=== PATIENT | female | born 1995 | race Two or more races ===

== ENCOUNTER 2023-02-24 00:55 | Emergency (ER) | payer MEDICAID, OTHER ==
[~2023-02-24] VITALS: Ht 165.1 cm; Wt 103.0 kg
[2023-02-24 01:17] VITALS: BP 121/71; PULSE 91; RESP 16; O2SAT 97
[2023-02-24 02:05] LABS: Urine Bacteria NONE SEEN /hpf (None Seen); Urine Blood Negative /uL (Negative); Urine Clarity Clear (Clear); Urine Color Yellow (Yellow); Urine Mucus FEW (None Seen); Urine Protein, UAD Negative (Negative); Urine Specific Gravity 1.027 (1.001-1.035); Urine Urobilinogen Normal (Negative); Urine WBC 3 /hpf (0 - 5); Urine pH 5.5 (5.0-8.0)
[2023-02-24 02:08] LABS: Basophils # (auto) 0.1 10 ^3/uL (0-0.2); Basophils % (auto) 0.8 % (0.0-2.0); Eosinophils % (auto) 7.5 % (0.0-7.0); Hematocrit 37.4 % (36.0-46.0); Hemoglobin 12.2 g/dL (12.2-16.2); Lymphocytes # (auto) 3.4 10 ^3/uL (0.4-5.4); Lymphocytes % (auto) 25.8 % (10.0-50.0); Mean Corpuscular Hemoglobin 27.1 pg (28.0-32.0); Mean Corpuscular Hgb Conc. 32.6 g/dL (32.0-36.0); Mean Corpuscular Volume 83.2 fL (80.0-100.0); Monocytes # (auto) 0.7 10 ^3/uL (0-1.3); Monocytes % (auto) 5.7 % (0.0-12.0); Neutrophils # (auto) 7.9 10 ^3/uL (1.6-8.6); Neutrophils % (auto) 60.2 % (37.0-80.0); Red Blood Cells 4.49 10^6/uL (4.0-5.20); White Blood Cell 13.1 10^3/uL (4.4-10.8)
[2023-02-24 02:26] LABS: Alanine Aminotransferase 16 U/L (7-40); Albumin 4.5 g/dL (3.2-4.8); Alkaline Phosphatase 56 U/L (46-116); Anion Gap 8.6 (5-15); Aspartate Aminotransferase 25 U/L (13-40); BUN/Creatinine Ratio 10.7 (10.0-20.0); Bilirubin, Total 0.3 mg/dL (0.2-1.0); Blood Urea Nitrogen 6 mg/dL (9-23); Calcium 9.7 mg/dL (8.7-10.4); Carbon Dioxide 21.4 mmol/L (20-30); Chloride 107 mmol/L (98-107); Glucose 104 mg/dL (74-106); Potassium 3.3 mmol/L (3.5-5.1); Sodium 137 mmol/L (136-145); Total Protein 7.2 g/dL (5.7-8.2)
[2023-02-24] MEDS ORDERED: POTASSIUM EFFERVESENT TAB 25 MEQ PO ONE (05:30)
== END 2023-02-24 06:00 | disposition home or self-care (01) ==
LOC: ER 00:55
DX: O26.891 Other specified pregnancy related conditions, first trimester (principal); R10.2 Pelvic and perineal pain; D72.829 Elevated white blood cell count, unspecified; E87.6 Hypokalemia; Z3A.10 10 weeks gestation of pregnancy
CPT/HCPCS: 36415; 76801; 80053; 81001; 84702; 85025

== ENCOUNTER 2023-05-16 12:38 | Observation (INO) | payer MEDICAID ==
[2023-05-16] MEDS ORDERED: PREN1TAB71 OR (13:33)
[2023-05-16] MEDS ORDERED: ALBU108A5 IN (13:33)
== END 2023-05-16 13:50 | disposition home or self-care (01) ==
LOC: LDRP 12:38
PROVIDERS: ADMIT Obstetrics & Gynecology; ATTEND Obstetrics & Gynecology
DX: Z34.83 Encounter for supervision of other normal pregnancy, third trimester (principal); Z3A.22 22 weeks gestation of pregnancy
CPT/HCPCS: 59025; 81002; 94760; G0378

== ENCOUNTER → 2023-11-27 | Outpatient (CLI) | payer MEDICAID ==
[~2023-11-27] MED LIST: ALBU108A5 IN; ALBUTEROL SULF 2.5 MG/0.5ML(0.5%) NEB SOLN ONE; FLUT0.05 NAS; PREN1TAB71 OR
== END | disposition home or self-care (01) ==
LOC: RT 08:52
PROVIDERS: ATTEND Internal Medicine Pulmonary Disease
DX: J45.909 Unspecified asthma, uncomplicated (principal)
CPT/HCPCS: 94060; 94727; 94729

== ENCOUNTER 2024-08-09 12:45 | Observation (INO) | payer MEDICAID ==
[~2024-08-09 12:45] MED LIST changes: -ALBUTEROL SULF 2.5 MG/0.5ML(0.5%) NEB SOLN ONE
--- NOTE | 2024-08-09 14:28 | DVH ---
BIOPHYSICAL PROFILE HISTORY: gdma1 TECHNIQUE: Multiple transabdominal real-time grayscale sonographic images through the gravid uterus of the fetus with duplex Doppler color flow and M-mode spectral analysis FINDINGS: BIOPHYSICAL PROFILE: breathing score: 2 movement score: 2 tone score: 2 Quantitative NOAH score: 2 (NOAH: 19.1 Cm.) Total score: 8/8 The cervix not measured but appears closed Single live fetus in breech presentation. heart rate 138 beats per minute. Anterior Grade 2 placenta without previa or abruption Single live fetus at 32 weeks 2 days Biophysical profile score 8/8 corresponding to an ANGELICA of 10/02/2024. Estimated weight not estimated g IMPRESSION: 1. Biophysical profile score: 8/8 HS:Y
[2024-08-09] MEDS ORDERED: ASPI-543 PO ×2 (14:46)
--- NOTE | 2024-08-09 19:34 | DVHDS2 ---
Physician Discharge Progress N Final Diagnosis: testing for GDM, A1 Operations or Procedures: Operations or Procedures 29yo IUP@32.2wks, +FM, denies UCs/LOF/VB VSS NST reactive (verified by 2 RNs) BPP wnl except breech FKC/PTL precautions reviewed Recommended spinning babies exercises to flip a breech baby. Dr. Reyes consulted, agrees with POC. Condition on Discharge: Stable Disposition: Home Discharge Instructions: Diet: Consistent carbohydrate Activity: No Restrictions, As Tolerated Medications: see med list Follow Up Care: Specialist: f/u in 1wk Discharge Statement: "Patient was advised to return to the ER or call 911 if any headaches, dizziness, shortness of breath, chest pain, abdominal pain, bleeding, fevers, or worsening of medical condition. Patient was counseled about treatment plan, medications, possible side effects, patientverbalized understanding. All questions were answered to the best of my ability. This discharge took greater then 30 minutes in planning, reviewing docu mentation, counseling the patient, and discussing with other team members." Visit Coding OBGYN Date of Service: Aug 09, 2024 Billing Provider: BRIANNA MAZARIEGOS CNM NUT SORTER Common Visit Codes: [id number] OBS CARE (HIGH) BRIANNA MAZARIEGOS CNM Aug 09, 2024 19:34
== END 2024-08-09 14:54 | disposition home or self-care (01) ==
LOC: LDRP 12:45
PROVIDERS: ADMIT Obstetrics & Gynecology; ATTEND Obstetrics & Gynecology
DX: O24.419 Gestational diabetes mellitus in pregnancy, unspecified control (principal); Z3A.32 32 weeks gestation of pregnancy; Z79.899 Other long term (current) drug therapy; Z98.890 Other specified postprocedural states
CPT/HCPCS: 76818; 81002; 82948; 82962; 94760; G0378; 59025; 76819

== ENCOUNTER 2024-08-16 07:36 | Observation (INO) | payer MEDICAID ==
[~2024-08-16 07:36] MED LIST changes: +ASPI-543 PO
--- NOTE | 2024-08-16 11:03 | DVH ---
Procedure: US BIOPHYSICAL PROFILE 08/16/2024 10:25 AM Indication: GDMA1 Comparison: US BIOPHYSICAL PROFILE on DOS: 08/09/24, US BIOPHYSICAL PROFILE on DOS: 09/16/23 Technique: Sonogram of gravid uterus utilizing grayscale and color techniques. FINDINGS: Single living intrauterine gestation. Presentation: Cephalic Placenta: Anterior heart rate: 138 bpm NOAH: 16.3 cm, DVP: 5.3 cm Maternal cervix: Not visualized Biophysical Profile: breathing score: 2 movement score: 2 tone: 2 Quantitative NOAH score: 2 Total score: 8/8 IMPRESSION: 1. Single living as above. 2. Biophysical profile score: 8/8.
--- NOTE | 2024-08-16 21:22 | DVHDS2 ---
Physician Discharge Progress N Final Diagnosis: testing for GDM, A1 Operations or Procedures: Operations or Procedures 29yo IUP@33.2wks, +FM, denies UCs/LOF/VB. Pt reports having the stomach bug for the last 24 hours, feels dehydrated. VSS Category I EFM tracing 1L LR IV bolus, pt feels better after FKC/PTL precautions reviewed Dr. Reyes consulted, agrees with POC. Other Interventions Other Interventions [place] [address] Ph: [phone] DIAGNOSTIC IMAGING Diagnostic Imaging Report : [id number] Signed PATIENT: LISA GOODRICH ACCT: [id number] UNIT: [id number] : 1995 LOC: [facility] ROOM / BED: [facility] / A AGE / SEX: 29 / F ADM STATUS: ADM IN SERVICE 1002 ORDERING PHYSICIAN: BRIANNA MAZARIEGOS CNM PROCEDURE(s): BPP - BIOPHYSICAL PROFILE REASON: GDMA1 ORDER NUMBER(s): [id number], ACCESSION NUMBER(s): [id number] Procedure: US BIOPHYSICAL PROFILE 08/16/2024 10:25 AM Indication: GDMA1 Comparison: US BIOPHYSICAL PROFILE on DOS: 08/09/24, US BIOPHYSICAL PROFILE on DOS: 09/16/23 Technique: Sonogram of gravid uterus utilizing grayscale and color techniques. FINDINGS: Single living intrauterine gestation. Presentation: Cephalic Placenta: Anterior heart rate: 138 bpm NOAH: 16.3 cm, DVP: 5.3 cm Maternal cervix: Not visualized Biophysical Profile: breathing score: 2 movement score: 2 tone: 2 Quantitative NOAH score: 2 Total score: 8/8 IMPRESSION: 1. Single living as above. 2. Biophysical profile score: 8/8. ATED BY: ANA CHAMORRO MD DICTATED DATE/TIME: 08/16/24 110 SIGNED BY: ANA CHAMORRO MD SIGNED DATE/TIME: 08/16/24 110 CC: Condition on Discharge: Stable Disposition: Home Discharge Instructions: Diet: Consistent carbohydrate Activity: No Restrictions, As Tolerated Medications: see med list Follow Up Care: Specialist: f/u in 1wk Discharge Statement: "Patient was advised to return to the ER or call 911 if any headaches, dizzi ness, shortness of breath, chest pain, abdominal pain, bleeding, fevers, or worsening of medical condition. Patient was counseled about treatment plan, medications, possible side effects, patientverbalized understanding. All questions were answered to the best of my ability. This discharge took greater then 30 minutes in planning, reviewing documentation, counseling the patient, and discussing with other team members." Visit Coding OBGYN Date of Service: Aug 16, 2024 Billing Provider: BRIANNA MAZARIEGOS CNM MANAGER FLIGHT OPERATIONS Common Visit Codes: 66259-[id number] OBS CARE (HIGH) MANAGER FLIGHT OPERATIONS Procedure Codes: 99318-40- NON-STRESS TEST BRIANNA MAZARIEGOS CNM Aug 16, 2024 21:22
== END 2024-08-16 13:39 | disposition home or self-care (01) ==
LOC: LDRP 09:50
PROVIDERS: ADMIT Obstetrics & Gynecology; ATTEND Obstetrics & Gynecology
DX: O24.419 Gestational diabetes mellitus in pregnancy, unspecified control (principal); Z98.890 Other specified postprocedural states; Z79.899 Other long term (current) drug therapy; Z3A.33 33 weeks gestation of pregnancy
CPT/HCPCS: 59025; 76819; 81002; 82948; 82962; 94760; G0378; 76818

== ENCOUNTER 2024-08-21 20:45 | Observation (INO) | payer MEDICAID ==
[~2024-08-21] VITALS: Ht 165.1 cm; Wt 108.9 kg
[2024-08-21] MEDS ORDERED: METF-370 PO (21:25)
--- NOTE | 2024-08-22 09:24 | DVHDS2 ---
Discharge Summary Date of Admission Aug 21, 2024 at 20:45 Date of Discharge: Aug 21, 2024 Admitting Diagnosis 34 weeks her for BP check and GROSS eval Wounds: n/a Labs/Diagnostic Data: Laboratory Results Test 08/21/24 21:32 POC Glucose 133 mg/dl (70-106) Brief Hx & Hospital Course: Patient dehydrated BP's stable, fetus reassuring , maternal eval reassuring Consults/Reason for consult GROSS BP check Condition at Discharge: Good Final Diagnosis/Problems List GROSS , 34 wk IUP stable , BP controlled Discharge Disposition: Home SNF Discharge Will this Physician continue t: No Discharge Instruct/Medications Diet: Regular, Consistent carbohydrate Activity: Light activity (kick counts labor precautions) Follow Up/Referral: PLease keep all follow up appointments with primary OBGYN Medications: Continue taking all prescribed medications as directed Discharge Statement: "Patient was advised to return to the ER or call 911 if any headaches, dizziness, shortness of breath, chest pain, abdominal pain, bleeding, fevers, or worsening of medical condition. Patient was counseled about treatment plan, medications, possible side effects, patientverbalized understanding. All questions were answered to the best of my ability. This discharge took greater then 30 minutes in planning, reviewing documentation, counseling the patient, and discussing with other team members." ASSESSMENT ASSESSMENT Assessment Visit Coding OBGYN Date of Service: Aug 21, 2024 Billing Provider: ANTHONY RUBALCAVA DO FUR MIXER OPERATOR Common Visit Codes: 32646-QEG/OBS SAME DATE (LOW), 28020-GLG/OBS SAME DATE (MOD), 18162-UEX/OBS SAME DATE (HIGH) FUR MIXER OPERATOR Procedure Codes: 76898-80- NON-STRESS TEST ANTHONY RUBALCAVA DO Aug 22, 2024 09:24
== END 2024-08-21 23:00 | disposition home or self-care (01) ==
LOC: LDRP 20:45
PROVIDERS: ADMIT Obstetrics & Gynecology; ATTEND Obstetrics & Gynecology
DX: O26.893 Other specified pregnancy related conditions, third trimester (principal); G43.909 Migraine, unspecified, not intractable, without status migrainosus; Z98.890 Other specified postprocedural states; Z79.899 Other long term (current) drug therapy; Z3A.34 34 weeks gestation of pregnancy
CPT/HCPCS: 59025; 81002; 82948; 82962; 94760; G0378

== ENCOUNTER 2024-08-23 06:47 | Observation (INO) | payer MEDICAID ==
[~2024-08-23 06:47] MED LIST changes: +METF-370 PO
--- NOTE | 2024-08-23 11:25 | DVH ---
BIOPHYSICAL PROFILE HISTORY: GDMA1 TECHNIQUE: Multiple transabdominal real-time grayscale sonographic images through the gravid uterus of the fetus with duplex Doppler color flow and M-mode spectral analysis FINDINGS: BIOPHYSICAL PROFILE: breathing score: 2 movement score: 2 tone score: 2 Quantitative NOAH score: 2 (NOAH: 18.7 Cm.) Total score: 8 The cervix not well visualized. Single live fetus in cephalic presentation. heart rate 146 beats per minute. Anterior placenta without previa or abruption IMPRESSION: Biophysical profile score: 8
--- NOTE | 2024-08-23 11:41 | DVHDS2 ---
Physician Discharge Progress N Final Diagnosis: gdma2 34wks Operations or Procedures: Operations or Procedures nst,julianne 34wks Condition on Discharge: Good Disposition: Home Discharge Instructions: Diet: Consistent carbohydrate Activity: No Restrictions, As Tolerated Medications: na Follow Up Care: Specialist: 1w Discharge Statement: "Patient was advised to return to the ER or call 911 if any headaches, dizziness, shortness of breath, chest pain, abdominal pain, bleeding, fevers, or worsening of medical condition. Patient was counseled about treatment plan, medications, possible side effects, patientverbalized understanding. All questions were answered to the best of my ability. This discharge took greater then 30 minutes in planning, reviewing doc umentation, counseling the patient, and discussing with other team members." Visit Coding OBGYN Date of Service: Aug 23, 2024 Billing Provider: SHIRA MCDONALD DO SALES DEVELOPMENT COORDINATOR Common Visit Codes: 96349-MOCVTOA INP/OBS CARE (HIGH) SALES DEVELOPMENT COORDINATOR Procedure Codes: 81144-26- NON-STRESS TEST SHIRA MCDONALD DO Aug 23, 2024 11:41
== END 2024-08-23 11:52 | disposition home or self-care (01) ==
LOC: LDRP 10:21
PROVIDERS: ADMIT Obstetrics & Gynecology; ATTEND Obstetrics & Gynecology
DX: O24.419 Gestational diabetes mellitus in pregnancy, unspecified control (principal); Z98.890 Other specified postprocedural states; Z79.899 Other long term (current) drug therapy; Z3A.34 34 weeks gestation of pregnancy
CPT/HCPCS: 76818; 81002; 82948; 82962; 94760; G0378; 59025; 76819

== ENCOUNTER 2024-08-26 09:03 | Observation (INO) | payer MEDICAID ==
--- NOTE | 2024-08-26 09:55 | DVH ---
CLINICAL HISTORY: Gestational diabetes. COMPARISON: US BIOPHYSICAL PROFILE on DOS: 08/23/24, US BIOPHYSICAL PROFILE on DOS: 08/16/24, US BIOPHYS ICAL PROFILE on DOS: 08/09/24 TECHNIQUE: biophysical profile was performed. Transabdominal sonographic images of the fetus we re obtained. FINDINGS: The fetus is in cephalic position. heart rate measures 134 BPM. Amniotic fluid index measures 16.9 cm. The placenta is anterior in position. BPP profile is an overall score of 8/8, with 2/2 points for breathing, with at least one episode of breathing over a 30 second duration during a 30 minute observation, 2/2 points for m ovements, with 3 or more discrete body or limb movements, 2/2 points for tone, with one or more episodes of extremity extension with return to flexion, or opening and closing of hand, and 2/ 2 points for amniotic fluid, with at least 1 pocket of amniotic fluid that measures 2 cm in 2 perpend icular planes. IMPRESSION: BPP score of 8/8.
--- NOTE | 2024-08-26 10:57 | DVHDS2 ---
Physician Discharge Progress N Final Diagnosis: gdm 34wks Operations or Procedures: Operations or Procedures nst,sono Condition on Discharge: Good Disposition: Home Discharge Instructions: Diet: Consistent carbohydrate Activity: No Restrictions, As Tolerated Medications: na Follow Up Care: Specialist: 4d Discharge Statement: "Patient was advised to return to the ER or call 911 if any headaches, dizziness, shortness of breath, chest pain, abdominal pain, bleeding, fevers, or worsening of medical condition. Patient was counseled about treatment plan, medications, possible side effects, patientverbalized understanding. All questions were answered to the best of my ability. This discharge took greater then 30 minutes in planning, reviewing documentati on, counseling the patient, and discussing with other team members." Visit Coding OBGYN Date of Service: Aug 26, 2024 Billing Provider: SHIRA MCDONALD DO DIAZO TECHNICIAN Common Visit Codes: 17093-[id number] INP/OBS CARE (HIGH) DIAZO TECHNICIAN Procedure Codes: 92030-87- NON-STRESS TEST SHIRA MCDONALD DO Aug 26, 2024 10:57
== END 2024-08-26 10:43 | disposition home or self-care (01) ==
LOC: LDRP 09:03
PROVIDERS: ADMIT Obstetrics & Gynecology; ATTEND Obstetrics & Gynecology
DX: O24.419 Gestational diabetes mellitus in pregnancy, unspecified control (principal); Z98.890 Other specified postprocedural states; Z79.899 Other long term (current) drug therapy; Z3A.34 34 weeks gestation of pregnancy
CPT/HCPCS: 76818; 81002; 82962; 94760; G0378; 59025; 76819

== ENCOUNTER 2024-08-30 10:00 | Observation (INO) | payer MEDICAID ==
--- NOTE | 2024-08-30 12:00 | DVH ---
Procedure: US BIOPHYSICAL PROFILE 08/30/2024 10:21 AM Indication: GDMA2 Comparison: US BIOPHYSICAL PROFILE on DOS: 08/26/24, US BIOPHYSICAL PROFILE on DOS: 08/23/24, US BIOPHY SICAL PROFILE on DOS: 08/16/24 Technique: Sonogram of gravid uterus utilizing grayscale and color techniques. FINDINGS: Single living intrauterine gestation. Presentation: Cephalic Placenta: Anterior heart rate: 167 bpm NOAH: 14.4 cm, DVP: 3 cm Maternal cervix: Not visualized Biophysical Profile: breathing score: 2 movement score: 2 tone: 2 Quantitative NOAH score: 2 Total score: 8/8 IMPRESSION: 1. Single living as above. 2. Biophysical profile score: 8/8.
--- NOTE | 2024-08-30 13:34 | DVHDS2 ---
Physician Discharge Progress N Final Diagnosis: testing for gdma2 Operations or Procedures: Operations or Procedures 29yo IUP@35.2wks VSS NST reactive FKC/PTL precautions reviewed Dr. Reyes consulted, agrees with POC. Other Interventions Other Interventions [address] [address] Ph: [phone] DIAGNOSTIC IMAGING Diagnostic Imaging Report : [id number] Signed PATIENT: LISA GOODRICH ACCT: [id number] UNIT: [id number] : 1995 LOC: [facility]OM / BED: TRIAGE[facility] / A AGE / SEX: 29 / F ADM STATUS: DIS IN SERVICE 1005 ORDERING PHYSICIAN: BRIANNA MAZARIEGOS CNM PROCEDURE(s): BPP - BIOPHYSICAL PROFILE REASON: GDMA2 ORDER NUMBER(s): [id number], ACCESSION NUMBER(s): [id number] Procedure: US BIOPHYSICAL PROFILE 08/30/2024 10:21 AM Indication: GDMA2 Comparison: US BIOPHYSICAL PROFILE on DOS: 08/26/24, US BIOPHYSICAL PROFILE on DOS: 08/23/24, US BIOPHYSICAL PROFILE on DOS: 08/16/24 Technique: Sonogram of gravid uterus utilizing grayscale and color techniques. FINDINGS: Single living intrauterine gestation. Presentation: Cephalic Placenta: Anterior heart rate: 167 bpm NOAH: 14.4 cm, DVP: 3 cm Maternal cervix: Not visualized Biophysical Profile: breathing score: 2 movement score: 2 tone: 2 Quantitative NOAH score: 2 Total score: 8/8 IMPRESSION: 1. Single living as above. 2. Biophysical profile score: 8/8. ATED BY: ANA CHAMORRO MD DICTATED DATE/TIME: 08/30/24 1158 SIGNED BY: ANA CHAMORRO MD SIGNED DATE/TIME: 08/30/24 1158 CC: Condition on Discharge: Stable Disposition: Home Discharge Instructions: Diet: Consistent carbohydrate Activity: No Restrictions, As Tolerated Medications: see med list Follow Up Care: Specialist: f/u in 3 days Discharge Statement: "Patient was advised to return to the ER or call 911 if any headaches, dizziness, shortness of breath, chest pain, abdominal pain, bleeding, fevers, or worsening of medical condition. Patient was counseled about treatment plan, medications, possible side effects, patientverbalized understanding. All questions were answered to the best of my ability. This discharge took greater then 30 minutes in planning, reviewing documentation, counseling the patient, and discussing with other team members." Visit Coding OBGYN Date of Service: Aug 30, 2024 Billing Provider: BRIANNA MAZARIEGOS CNM DOOR TECHNICIAN Common Visit Codes: 26534-ZICPOTV OBS CARE (HIGH) DOOR TECHNICIAN Procedure Codes: 11083-78- NON-STRESS TEST BRIANNA MAZARIEGOS CNM Aug 30, 2024 13:34
== END 2024-08-30 11:17 | disposition home or self-care (01) ==
LOC: LDRP 10:00 → UNDOADMOB 10:00 → LDRP 10:06 → UNDODISOB 11:17
PROVIDERS: ADMIT Obstetrics & Gynecology; ATTEND Obstetrics & Gynecology
DX: O24.419 Gestational diabetes mellitus in pregnancy, unspecified control (principal); Z3A.35 35 weeks gestation of pregnancy; Z87.891 Personal history of nicotine dependence; Z79.899 Other long term (current) drug therapy
CPT/HCPCS: 76819; 81002; 82948; 82962; 94760; G0378

== ENCOUNTER 2024-09-02 07:11 | Observation (INO) | payer MEDICAID ==
[2024-09-02] MEDS ORDERED: FAMO20TA10 PO (10:38)
--- NOTE | 2024-09-02 10:39 | DVH ---
Procedure: US BIOPHYSICAL PROFILE 09/02/2024 10:00 AM Indication: GDMA2 Comparison: US BIOPHYSICAL PROFILE on DOS: 08/30/24, US BIOPHYSICAL PROFILE on DOS: 08/26/24, US BIOPHY SICAL PROFILE on DOS: 08/23/24 Technique: Sonogram of gravid uterus utilizing grayscale and color techniques. FINDINGS: Single living intrauterine gestation. Presentation: Breech Placenta: Anterior heart rate: 134 bpm NOAH: 16.5 cm, DVP: 6.4 cm Maternal cervix: Not visualized Biophysical Profile: breathing score: 2 movement score: 2 tone: 2 Quantitative NOAH score: 2 Total score: 8/8 IMPRESSION: 1. Single living as above. 2. Biophysical profile score: 8/8.
--- NOTE | 2024-09-02 10:55 | DVHDS2 ---
Physician Discharge Progress N Final Diagnosis: gdm, 35wks Operations or Procedures: Operations or Procedures nst 35wks,sono Condition on Discharge: Good Disposition: Home Discharge Instructions: Diet: Consistent carbohydrate Activity: No Restrictions, As Tolerated Medications: na Follow Up Care: Specialist: 1w Discharge Statement: "Patient was advised to return to the ER or call 911 if any headaches, dizziness, shortness of breath, chest pain, abdominal pain, bleeding, fevers, or worsening of medical condition. Patient was counseled about treatment plan, medications, possible side effects, patientverbalized understanding. All questions were answered to the best of my ability. This discharge took greater then 30 minutes in planning, reviewing docu mentation, counseling the patient, and discussing with other team members." Visit Coding OBGYN Date of Service: Sep 02, 2024 Billing Provider: SHIRA MCDONALD DO BURLAP SPREADER Common Visit Codes: [id number] INP/OBS CARE(HIGH) BURLAP SPREADER Procedure Codes: 72015-22- NON-STRESS TEST SHIRA MCDONALD DO Sep 02, 2024 10:54
== END 2024-09-02 10:51 | disposition home or self-care (01) ==
LOC: LDRP 09:45
PROVIDERS: ADMIT Obstetrics & Gynecology; ATTEND Obstetrics & Gynecology
DX: O24.419 Gestational diabetes mellitus in pregnancy, unspecified control (principal); Z98.890 Other specified postprocedural states; Z79.899 Other long term (current) drug therapy; Z3A.35 35 weeks gestation of pregnancy
CPT/HCPCS: 76819; 81002; 82948; 82962; 94760; G0378

== ENCOUNTER 2024-09-06 06:43 | Observation (INO) | payer MEDICAID ==
[~2024-09-06 06:43] MED LIST changes: +FAMO20TA10 PO
--- NOTE | 2024-09-06 16:43 | DVH ---
EXAM: US BIOPHYSICAL PROFILE HISTORY: GDMA2 COMPARISON: US BIOPHYSICAL PROFILE on DOS: 09/02/24, US BIOPHYSICAL PROFILE on DOS: 08/30/24, US BIOPHY SICAL PROFILE on DOS: 08/26/24 TECHNIQUE: Multiple transabdominal real-time grayscale sonographic images through the gravid uterus of the fetus with duplex Doppler color flow and M-mode spectral analysis Findings/Impression: Single live intrauterine in vertex presentation with heart rate of 137 bpm. Biophysical profile was performed with 2 points for respirations, 2 points for movement, 2 points for tone and 2 points for amniotic fluid index. Biophysical profile score of 8/8. Amniotic fluid is within normal limits with NOAH 17.3 cm and MVP 5.9 cm. Normal NOAH (5-25 cm) Normal MVP (2-8 cm)
--- NOTE | 2024-09-06 17:25 | DVHDS2 ---
Physician Discharge Progress N Final Diagnosis: GDM Operations or Procedures: Operations or Procedures NST/BPP/NOAH Commentary: Commentary PATIENT: LISA GOODRICH ACCT: [id number] UNIT: [id number] : 1995 LOC: LD ROOM / BED: TRIAGE3 / A AGE / SEX: 29 / F ADM STATUS: ADM IN SERVICE 1603 ORDERING PHYSICIAN: NIDHI COKER DO PROCEDURE(s): BPP - BIOPHYSICAL PROFILE REASON: GDMA2 ORDER NUMBER(s): [id number], ACCESSION NUMBER(s): [id number] EXAM: US BIOPHYSICAL PROFILE HISTORY: GDMA2 COMPARISON: US BIOPHYSICAL PROFILE on DOS: 09/02/24, US BIOPHYSICAL PROFILE on DOS: 08/30/24, US BIOPHYSICAL PROFILE on DOS: 08/26/24 TECHNIQUE: Multiple transabdominal real-time grayscale sonographic images through the gravid uterus of the fetus with duplex Doppler color flow and M-mode spectral analysis Findings/Impression: Single live intrauterine in vertex presentation with heart rate of 137 bpm. Biophysical profile was performed with 2 points for respirations, 2 points for movement, 2 points for tone and 2 points for amniotic fluid index. Biophysical profile score of 8/8. Amniotic fluid is within normal limits with NOAH 17.3 cm and MVP 5.9 cm. Normal NOAH (5-25 cm) Normal MVP (2-8 cm) ATED BY: KIMBER ALVARADO DO DICTATED DATE/TIME: 09/06/24 1641 Condition on Discharge: Stable Disposition: Home Discharge Instructions: Diet: Consistent carbohydrate Activity: Light activity Follow Up/Referral: as scheduled Medications: N/A Follow Up Care: Discharge Statement: "Patient was advised to return to the ER or call 911 if any headaches, dizziness, shortness of breath, chest pain, abdominal pain, bleeding, fevers, or worsening of medical condition. Patient was counseled about treatment plan, medications, possible side effects, patientverbalized understanding. All questions were answered to the best of my ability. This discharge took greater then 30 minutes in planning, reviewing documentation, counseling the patient, and discussing with other team members." Visit Coding OBGYN Date of Service: Sep 06, 2024 Billing Provider: NIDHI COKER DO NETWORK RELATIONS CONSULTANT Common Visit Codes: 38440-TXG/OBS SAME DATE (MOD) NIDHI COKER DO Sep 06, 2024 17:25
== END 2024-09-06 17:26 | disposition home or self-care (01) ==
LOC: LDRP 15:52 → UNDOADMOB 15:52 → LDRP 16:05
PROVIDERS: ADMIT Obstetrics & Gynecology; ATTEND Obstetrics & Gynecology
DX: O24.419 Gestational diabetes mellitus in pregnancy, unspecified control (principal); Z98.890 Other specified postprocedural states; Z79.899 Other long term (current) drug therapy; Z3A.36 36 weeks gestation of pregnancy
CPT/HCPCS: 76818; 81002; 82948; 82962; 94760; G0378; 76819

== ENCOUNTER 2024-09-09 15:21 | Observation (INO) | payer MEDICAID ==
[2024-09-09] MEDS ORDERED: METF-372 PO (16:42)
--- NOTE | 2024-09-09 17:28 | DVH ---
Procedure: US BIOPHYSICAL PROFILE 09/09/2024 04:37 PM Indication: GDMA2 Comparison: US BIOPHYSICAL PROFILE on DOS: 09/06/24, US BIOPHYSICAL PROFILE on DOS: 09/02/24, US BIOPHY SICAL PROFILE on DOS: 08/30/24 Technique: Sonogram of gravid uterus utilizing grayscale and color techniques. FINDINGS: Single living intrauterine gestation. Presentation: Cephalic Placenta: Fundal, grade 2 heart rate: 125 bpm NOAH: 13.7 cm, DVP: 6.4 cm Maternal cervix: Not visualized Other: The umbilical cord is draped over neck Biophysical Profile: breathing score: 2 movement score: 2 tone: 2 Quantitative NOAH score: 2 Total score: 8/8 IMPRESSION: 1. Single living as above. 2. Biophysical profile score: 8/8. 3. Nuchal cord.
--- NOTE | 2024-09-10 11:54 | DVHDS2 ---
Physician Discharge Progress N Final Diagnosis: gdm 36wks Operations or Procedures: Operations or Procedures [id number],sono Condition on Discharge: Good Disposition: Home Discharge Instructions: Diet: Consistent carbohydrate Activity: No Restrictions, As Tolerated Medications: na Follow Up Care: Specialist: 3d Discharge Statement: "Patient was advised to return to the ER or call 911 if any headaches, dizziness, shortness of breath, chest pain, abdominal pain, bleeding, fevers, or worsening of medical condition. Patient was counseled about treatment plan, medications, possible side effects, patientverbalized understanding. All questions were answered to the best of my ability. This discharge took greater then 30 minutes in planning, reviewing docume ntation, counseling the patient, and discussing with other team members." Visit Coding OBGYN Date of Service: Sep 09, 2024 Billing Provider: SHIRA MCDONALD DO WOOD BOX MAKER Common Visit Codes: 64637-[id number] INP/OBS CARE(HIGH) WOOD BOX MAKER Procedure Codes: 31214-68- NON-STRESS TEST SHIRA MCDONALD DO Sep 10, 2024 11:54
== END 2024-09-09 17:32 | disposition home or self-care (01) ==
LOC: LDRP 15:54
PROVIDERS: ADMIT Obstetrics & Gynecology; ATTEND Obstetrics & Gynecology
DX: O24.419 Gestational diabetes mellitus in pregnancy, unspecified control (principal); Z3A.36 36 weeks gestation of pregnancy; Z79.899 Other long term (current) drug therapy
CPT/HCPCS: 76819; 81002; 82948; 82962; 94760; G0378

== ENCOUNTER 2024-09-13 06:37 | Observation (INO) | payer MEDICAID ==
[~2024-09-13 06:37] MED LIST changes: +METF-372 PO
--- NOTE | 2024-09-13 12:44 | DVH ---
BIOPHYSICAL PROFILE HISTORY: GDMA2 TECHNIQUE: Multiple transabdominal real-time grayscale sonographic images through the gravid uterus of the fetus with duplex Doppler color flow and M-mode spectral analysis FINDINGS: BIOPHYSICAL PROFILE: breathing score: 2 movement score: 2 tone score: 2 Quantitative NOAH score: 2 (NOAH: 13.9 Cm.) Total score: 8 The cervix not well visualized. Single live fetus in cephalic presentation. heart rate 140 beats per minute. Anterior placenta without previa or abruption IMPRESSION: Biophysical profile score: 8 Possible nuchal cord is visualized
--- NOTE | 2024-09-13 23:04 | DVHDS2 ---
Physician Discharge Progress N Final Diagnosis: testing for GDM, A2 Operations or Procedures: Operations or Procedures 29yo IUP@37.2wks VSS NST reactive FKC/labor precautions reviewed Other Interventions Other Interventions [address] [address] Ph: [phone] DIAGNOSTIC IMAGING Diagnostic Imaging Report : [id number] Signed PATIENT: LISA GOODRICH ACCT: [id number] UNIT: [id number] : 1995 LOC: [facility] ROOM / BED: TRIAGE3 / A AGE / SEX: 29 / F ADM STATUS: ADM IN SERVICE 1157 ORDERING PHYSICIAN: BRIANNA MAZARIEGOS CNM PROCEDURE(s): BPP - BIOPHYSICAL PROFILE REASON: GDMA2 ORDER NUMBER(s): [id number], ACCESSION NUMBER(s): [id number] BIOPHYSICAL PROFILE HISTORY: GDMA2 TECHNIQUE: Multiple transabdominal real-time grayscale sonographic images through the gravid uterus of the fetus with duplex Doppler color flow and M-mode spectral analysis FINDINGS: BIOPHYSICAL PROFILE: breathing score: 2 movement score: 2 tone score: 2 Quantitative NOAH score: 2 (NOAH: 13.9 Cm.) Total score: 8 The cervix not well visualized. Single live fetus in cephalic presentation. heart rate 140 beats per minute. Anterior placenta without previa or abruption IMPRESSION: Biophysical profile score: 8 Possible nuchal cord is visualized ATED BY: ODELL MCGARRY MD DICTATED DATE/TIME: 09/13/241240 SIGNED BY: ODELL MCGARRY MD SIGNED DATE/TIME: 09/13/24 124 CC: Condition on Discharge: Stable Disposition: Home Discharge Instructions: Diet: Consistent carbohydrate Activity: No Restrictions, As Tolerated Medications: see med list Follow Up Care: Specialist: f/u in 3 days Discharge Statement: "Patient was advised to return to the ER or call 911 if any headaches, dizziness, shortness of breath, chest pain, abdominal pain, bleeding, fevers, or worsening of medical condition. Patient was counseled about treatment plan, medications, possible side effects, patientverbalized understanding. All questions were answered to the best of my ability. This discharge took greater then 30 minutes in planning, reviewing documentation, counseling the patient, and discussing with other team members." Visit Coding OBGYN Date of Service: Sep 13, 2024 Billing Provider: BRIANNA MAZARIEGOS CNM ENGAGEMENT LIAISON Common Visit Codes: 13085-CHOOIKE OBS CARE (HIGH) ENGAGEMENT LIAISON Procedure Codes: 56020-94- NON-STRESS TEST BRIANNA MAZARIEGOS CNM Sep 13, 2024 23:04
== END 2024-09-13 14:00 | disposition home or self-care (01) ==
LOC: LDRP 11:54
PROVIDERS: ADMIT Obstetrics & Gynecology; ATTEND Obstetrics & Gynecology
DX: O24.419 Gestational diabetes mellitus in pregnancy, unspecified control (principal); Z98.890 Other specified postprocedural states; Z79.899 Other long term (current) drug therapy; Z3A.37 37 weeks gestation of pregnancy
CPT/HCPCS: 59025; 76819; 81002; 94760; G0378

== ENCOUNTER 2024-09-16 07:45 | Observation (INO) | payer MEDICAID ==
--- NOTE | 2024-09-16 10:45 | DVH ---
BIOPHYSICAL PROFILE HISTORY: gdma1 Comparison Study: None TECHNIQUE: Multiple real-time grayscale sonographic images through the gravid uterus of the fetus wi th duplex Doppler color flow and M-mode spectral analysis FINDINGS: BIOPHYSICAL PROFILE: breathing score: 2 movement score: 2 tone score: 2 Quantitative NOAH score: 2 (NOAH: 15.1 Cm.) Total score: 8 The cervix is not visualized Single live fetus in cephalic presentation. heart rate 15.1 beats per minute. Anterior placenta without previa or abruption IMPRESSION: Biophysical profile score: 8
--- NOTE | 2024-09-17 06:34 | DVHDS2 ---
Physician Discharge Progress N Final Diagnosis: gdm 37wks Operations or Procedures: Operations or Procedures nst,sono Condition on Discharge: Good Disposition: Home Discharge Instructions: Diet: Regular, Consistent carbohydrate Activity: No Restrictions, As Tolerated Medications: na Follow Up Care: Discharge Statement: 3d"Patient was advised to return to the ER or call 911 if any headaches, diz ziness, shortness of breath, chest pain, abdominal pain, bleeding, fevers, or worsening of medical condition. Patient was counseled about treatment plan, medications, possible side effects, patientverbalized understanding. All questions were answered to the best of my ability. This discharge took greater then 30 minutes in planning, reviewing documentation, counseling the patient, and discussing with other team members." Visit Coding OBGYN Date of Service: Sep 16, 2024 Billing Provider: SHIRA MCDONALD DO MATTRESS STUFFER Common Visit Codes: [id number] INP/OBS CARE (HIGH) MATTRESS STUFFER Procedure Codes: 14478-38- NON-STRESS TEST SHIRA MCDONALD DO Sep 17, 2024 06:34
== END 2024-09-16 11:25 | disposition home or self-care (01) ==
LOC: UNDOADMOB 10:00 → LDRP 10:00
PROVIDERS: ADMIT Obstetrics & Gynecology; ATTEND Obstetrics & Gynecology
DX: O24.419 Gestational diabetes mellitus in pregnancy, unspecified control (principal); Z3A.37 37 weeks gestation of pregnancy; Z79.899 Other long term (current) drug therapy; Z98.890 Other specified postprocedural states
CPT/HCPCS: 76818; 81002; 94760; G0378; 76819

== ENCOUNTER 2024-09-20 07:21 | Observation (INO) | payer MEDICAID ==
--- NOTE | 2024-09-20 14:36 | DVH ---
BIOPHYSICAL PROFILE HISTORY: GDMA2 Comparison Study: 09/16/2024 TECHNIQUE: Multiple real-time grayscale sonographic images through the gravid uterus of the fetus wi th duplex Doppler color flow and M-mode spectral analysis FINDINGS: BIOPHYSICAL PROFILE: breathing score: 2 movement score: 2 tone score: 2 Quantitative NOAH score: 2 (NOAH: 15.7 Cm.) Total score: 8 The cervix is not visualized Single live fetus in cephalic presentation. heart rate 151 beats per minute. Anterior placenta without previa or abruption IMPRESSION: Biophysical profile score: 8
--- NOTE | 2024-09-20 22:26 | DVHDS2 ---
Physician Discharge Progress N Final Diagnosis: testing for GDM, A2 Operations or Procedures: Operations or Procedures 31yo IUP@38.2wks VSS NST reactive FKC/Labor precautions reviewed Condition on Discharge: Stable Disposition: Home Discharge Instructions: Diet: Consistent carbohydrate Activity: No Restrictions, As Tolerated Medications: see med list Follow Up Care: Specialist: f/u in 3 days Discharge Statement: "Patient was advised to return to the ER or call 911 if any headaches, di zziness, shortness of breath, chest pain, abdominal pain, bleeding, fevers, or worsening of medical condition. Patient was counseled about treatment plan, medications, possible side effects, patientverbalized understanding. All questions were answered to the best of my ability. This discharge took greater then 30 minutes in planning, reviewing documentation, counseling the patient, and discussing with other team members." Visit Coding OBGYN Date of Service: Sep 20, 2024 Billing Provider: BRIANNA MAZARIEGOS CNM FIRE ENGINEER Common Visit Codes: [id number] OBS CARE (HIGH) FIRE ENGINEER Procedure Codes: 45588-22- NON-STRESS TEST BRIANNA MAZARIEGOS CNM Sep 20, 2024 22:25
== END 2024-09-20 15:02 | disposition home or self-care (01) ==
LOC: LDRP 13:59
PROVIDERS: ADMIT Obstetrics & Gynecology; ATTEND Obstetrics & Gynecology
DX: O24.419 Gestational diabetes mellitus in pregnancy, unspecified control (principal); Z98.890 Other specified postprocedural states; Z79.899 Other long term (current) drug therapy; Z3A.38 38 weeks gestation of pregnancy
CPT/HCPCS: 59025; 76819; 81002; 82948; 82962; 94760; G0378

== ENCOUNTER 2024-09-23 07:17 | Observation (INO) | payer MEDICAID ==
[~2024-09-23 07:17] MED LIST changes: -METF-370 PO
--- NOTE | 2024-09-23 09:18 | DVH ---
BIOPHYSICAL PROFILE HISTORY: GDMA2 TECHNIQUE: Multiple transabdominal real-time grayscale sonographic images through the gravid uterus of the fetus with duplex Doppler color flow and M-mode spectral analysis FINDINGS: BIOPHYSICAL PROFILE: breathing score: 2 movement score: 2 tone score: 2 Quantitative NOAH score: 2 (NOAH: 14.3 Cm.) Total score: 8/8 Single live fetus in cephalic presentation. heart rate 131 beats per minute. Grade 1 anterior placenta without previa or abruption Biophysical profile score 8/8 corresponding to an ANGELICA of 10/02/24 IMPRESSION: Biophysical profile score: 8/8
--- NOTE | 2024-09-23 12:50 | DVHDS2 ---
Physician Discharge Progress N Final Diagnosis: gdm 38wks Operations or Procedures: Operations or Procedures nst,sono Condition on Discharge: Good Disposition: Home Discharge Instructions: Diet: Consistent carbohydrate Activity: No Restrictions, As Tolerated Medications: na Follow Up Care: Specialist: induction thursday Discharge Statement: "Patient was advised to return to the ER or call 911 if any headaches, dizziness, shortness of breath, chest pain, abdominal pain, bleeding, fevers, or worsening of medical condition. Patient was counseled about treatment plan, medications, possible side effects, patientverbalized understanding. All questions were answered to the best of my ability. This discharge took greater then 30 minutes in planning, reviewing documentation, counseling the patient, and discussing with other team members." Visit Coding OBGYN Date of Service: Sep 23, 2024 Billing Provider: SHIRA MCDONALD DO SPORTS FITNESS AND WELLNESS DIRECTOR Common Visit Codes: [id number] INP/OBS CARE (HIGH) SPORTS FITNESS AND WELLNESS DIRECTOR Procedure Codes: 05744-21- NON-STRESS TEST SHIRA MCDONALD DO Sep 23, 2024 12:50
== END 2024-09-23 09:51 | disposition home or self-care (01) ==
LOC: LDRP 08:05 → UNDOADMOB 08:05 → LDRP 08:13
PROVIDERS: ADMIT Obstetrics & Gynecology; ATTEND Obstetrics & Gynecology
DX: O24.419 Gestational diabetes mellitus in pregnancy, unspecified control (principal); Z3A.38 38 weeks gestation of pregnancy; Z79.899 Other long term (current) drug therapy; Z98.890 Other specified postprocedural states
CPT/HCPCS: 59025; 76819; 81002; 82948; 94760; G0378

== ENCOUNTER 2024-09-25 06:13 | Inpatient (IN) | payer MEDICAID ==
[~2024-09-25] VITALS: Ht 165.1 cm; Wt 108.0 kg
[2024-09-25] MEDS ORDERED: ACCU-CHEK COMFORT CURVE STRIP VI PRN ×2 (08:30→10:00)
[2024-09-25] MEDS ORDERED: LIDOCAINE 2%HCL (LOCAL ANESTH.) INJ 20ML MDV IJ PRN ×2 (08:30→10:00)
[2024-09-25] MEDS ORDERED: DERMOPLAST 60ML BOTTLE TOP PRN (08:30)
[2024-09-25] MEDS ORDERED: PHISODERM TOP SOLN 240ML BTL TOP PRN (08:30)
[2024-09-25] MEDS ORDERED: BUTORPHANOL TARTRATE 2 MG/1 ML VIAL IV PRN ×4 (08:30→10:00)
[2024-09-25] MEDS ORDERED: WITCH HAZEL-GLYCERIN PAD TOP PRN (08:30)
[2024-09-25] MEDS: LACTATED RINGER'S 1,000 ML IV SCH (08:47)
[2024-09-25 09:27] LABS: Basophils # (auto) 0 10 ^3/uL (0-0.2); Basophils % (auto) 0.4 % (0.0-2.0); Eosinophils # (auto) 0.3 10 ^3/uL (0-0.8); Eosinophils % (auto) 3.5 % (0.0-7.0); Hematocrit 41.5 % (36.0-46.0); Hemoglobin 13.8 g/dL (12.2-16.2); Lymphocytes # (auto) 2.2 10 ^3/uL (0.4-5.4); Lymphocytes % (auto) 25.3 % (10.0-50.0); Mean Corpuscular Hemoglobin 31.1 pg (28.0-32.0); Mean Corpuscular Hgb Conc. 33.3 g/dL (32.0-36.0); Mean Corpuscular Volume 93.4 fL (80.0-100.0); Monocytes # (auto) 0.6 10 ^3/uL (0-1.3); Monocytes % (auto) 6.6 % (0.0-12.0); Neutrophils # (auto) 5.7 10 ^3/uL (1.6-8.6); Neutrophils % (auto) 64.2 % (37.0-80.0); Nucleated Red Blood Cells % 0.1 %; Platelet Count (auto) 212 10^3/uL (140-450); Red Blood Cells 4.44 10^6/uL (4.0-5.20); Red Cell Distribution Width 14.3 % (11.8-14.3); White Blood Cell 8.8 10^3/uL (4.4-10.8)
[2024-09-25 09:30] LABS: Urine Bacteria FEW /hpf (None Seen); Urine Blood Negative /uL (Negative); Urine Clarity Clear (Clear); Urine Color Light-Yellow (Yellow); Urine Mucus FEW (None Seen); Urine Protein, UAD Negative (Negative); Urine Specific Gravity 1.006 (1.001-1.035); Urine Squamous Epithelial Cell FEW /hpf (<5); Urine Urobilinogen Normal (Negative); Urine WBC 2 /HPF (0-5)
[2024-09-25] MEDS: miSOPROStol 50 MCG per PRE-CUT 1/2 TAB PO PRN (09:32)
[2024-09-25 09:45] LABS: Amphetamine Screen, Urine Neg (NEGATIVE); Barbiturate Scree,Urine Neg (NEGATIVE); Benzodiazephine Screen, Urine Neg (NEGATIVE); Cocaine Screen, Urine Neg (NEGATIVE)
[2024-09-25 09:46] LABS: Cannabinoid Screen, Urine Neg (NEGATIVE); Opiate Scree,Urine Neg (NEGATIVE); Phencyclidine Screen, Urine Neg (NEGATIVE)
[2024-09-25 09:47] LABS: Alanine Aminotransferase 15 U/L (7-40); Albumin 3.9 g/dL (3.2-4.8); Anion Gap 10 (5-15); Aspartate Aminotransferase 29 U/L (13-40); BUN/Creatinine Ratio 20.6 (10.0-20.0); Bilirubin, Total 0.5 mg/dL (0.2-1.0); Calcium 9.7 mg/dL (8.7-10.4); Carbon Dioxide 22 mmol/L (20-31); Chloride 106 mmol/L (98-107); Sodium 138 mmol/L (136-145)
[2024-09-25 09:48] LABS: INR 0.92 (0.9-1.15); Partial Thromboplastin Time 31.1 SEC (24.5-34.5); Prothrombin Time 9.8 sec (9.3-11.8)
[2024-09-25 09:50] LABS: Alkaline Phosphatase 123 U/L (46-116); Blood Urea Nitrogen 7 mg/dL (9-23); Glucose 106 mg/dL (74-106); Potassium 3.5 mmol/L (3.5-5.1)
[2024-09-25] MEDS: DERMOPLAST 60ML BOTTLE TOP PRN (11:33)
[2024-09-25] MEDS: PHISODERM TOP SOLN 240ML BTL TOP PRN (11:33)
[2024-09-25] MEDS: WITCH HAZEL-GLYCERIN PAD TOP PRN (11:34)
[2024-09-25] MEDS: PENICILLIN G POT 5MIL/D5 50ML 50 ML IV ONE (11:41)
[2024-09-25] MEDS ORDERED: PENICILLIN G POTASSIUM 2,500,000 UNITS in D5W 5% 50 ML IV SCH (16:30)
[2024-09-25] MEDS: PENICILLIN G POTASSIUM 2,500,000 UNITS in D5W 5% 50 ML IV SCH (16:33)
[2024-09-25] MEDS ORDERED: NALBUPHINE HCL 10 MG/1ml INJECTION IV PRN (18:30)
--- NOTE | 2024-09-25 18:51 | DVH ---
BIOPHYSICAL PROFILE HISTORY: Decels TECHNIQUE: Multiple transabdominal real-time grayscale sonographic images through the gravid uterus o f the fetus with duplex doppler color flow and M-mode spectral analysis FINDINGS: BIOPHYSICAL PROFILE: breathing score: 2 movement score: 2 tone score: 2 Quantitative NOAH score: 2 (NOAH: 12 cm.) Total score: 8/8 Single live fetus in vertex presentation. heart rate 133 beats per minute. Grade fundal placenta without previa or abruption Biophysical profile score 8/8 corresponding to an ANGELICA of 10/02/24 IMPRESSION: Biophysical profile score: 8/8
[2024-09-25] MEDS: LIDOCAINE HCL 2 %PF INJ 10ML AMP IJ ONE (20:00)
[2024-09-25] MEDS: LACTATED RINGER'S 500 ML IV ONE (20:00)
[2024-09-25] MEDS: ePHEDrine SULFATE 50 MG/ML AMP IV ONE (20:00)
[2024-09-25] MEDS ORDERED: D5W/LACTATED RINGERS 1,000 ML IV SCH (21:00)
[2024-09-25] MEDS: ROPIVACAINE HCL 200 ML ONE (21:10)
[2024-09-25] MEDS: LACT. RINGERS/OXYTOCIN 20UNITS 1,000 ML IV SCH (21:16)
[2024-09-25] MEDS: FAMOTIDINE (10MG/ML) 2ML VL IV PRN (23:19)
--- NOTE | 2024-09-26 06:05 | DVHHP2 ---
OB CC & HPI Patient Identification: : 3 Para: 2 EDC: Oct 02, 2024 EGA: 39 wks Chief Complaints: Reason for admission: induction of labor Past Medical History Cardiac: No pertinent Hx Pulmonary: No pertinent Hx Central Nervous System: No pertinent Hx GI: No pertinent Hx Hemotology/Oncology: No pertinent Hx Hepatobiliary: No pertinent Hx Psychiatric: No pertinent Hx Musculoskeletal: No pertinent Hx Rheumotologic: No pertinent Hx Infectious Disease: No peritnent Hx ENT: No pertinent Hx Renal/: No pertinent Hx Endocrine: No pertinent Hx Dermatology: No pertinent Hx Past Surgical History: No pertinent Hx OB History OB History Care: Good Care Obstetrical Complications: Gestational Diabetes Medical Complications: None Allergies: Coded Allergies: NO KNOWN ALLERGIES (Unverified , 06/29/23) Home Meds Reported Medications Metformin Hydrochloride (Metformin Hcl) 1,000 Mg Tab, 1000 MG PO DAILY, TAB 09/09/24 Famotidine (PEPCID TABLET) 20 Mg Tb, 1 TAB PO BID, #60 TAB 5 Refills 09/02/24 Aspirin (Aspir-Low) 81 Mg Tab, 81 MG PO DAILY for 30 Days, MG 08/09/24 Fluticasone Propionate (Fluticasone Propionate) 0.05 % Cre, 100 MCG SAL DAILY for 30 Days, MCG 09/16/23 Vit W/ Ferrous Fumara (PNV PLUS MULTIVI) Plus Tab, 1 OR, TAB 05/16/23 Albuterol Sulfate (Albuterol Sulfate Hfa) 108 Mcg/Act Aer, 108 MCG IN, AER 05/16/23 Discontinued Reported Medications Metformin Hydrochloride (Metformin Hcl) 500 Mg Tab, 500 MG PO IBID for 30 Days, MG 08/21/24 Current Medications Current Medications Medications (Trade) Dose Ordered Sig/Nannette Route PRN Reason Start Time Stop Time Status Last Admin Lactated Ringer's 1,000 ml @ 125 mls/hr Q8H IV 09/25/24 08:30 09/25/24 23:28 Penicillin G Potassium 9281325 units/Dextrose 50 ml @ 100 mls/hr Q4H IV 09/25/24 16:30 09/25/24 09:53 DC Diagnostic Test (Pha) (Accu-Chek Comfort Curve T) 1 strip Q4HR PRN Blood Sugar LESS THAN 60 09/25/24 08:30 09/25/24 09:53 DC Witch Brenda (Tucks) 1 pad PRN PRN TOP PERINEAL AREA DISCOMFORT 09/25/24 08:30 09/25/24 09:53 DC Sodium Lauryl Sulfate (Phisoderm) 240 ml PRN PRN TOP PERINEAL AREA DISCOMFORT 09/25/24 08:30 09/25/24 09:53 DC Benzocaine (Dermoplast) 1 applic PRN PRN TOP PERINEAL AREA DISCOMFORT 09/25/24 08:30 09/25/24 09:53 DC Butorphanol Tartrate (Stadol Injection) 1 mg Q4HPRN PRN IV MODERATE PAIN (4-6 PAIN SCALE) 09/25/24 08:30 09/25/24 09:53 DC Butorphanol Tartrate (Stadol Injection) 2 mg Q4HPRN PRN IV SEVERE PAIN (7-10 PAIN SCALE) 09/25/24 08:30 09/25/24 09:53 DC Misoprostol (Cytotec) 50 mcg Q4HPRN PRN PO CERVICAL RIPENING 09/25/24 10:00 09/25/24 13:25 Lidocaine HCl (Xylocaine) 20 ml ONCE PRN IJ PERINEAL AREA DISCOMFORT 09/25/24 08:30 09/25/24 09:53 DC Penicillin G Potassium [id number] units/Dextrose 50 ml @ 100 mls/hr Q4H IV 09/25/24 16:30 09/26/24 05:17 Butorphanol Tartrate (Stadol Injection) 1 mg Q4HPRN PRN IV MODERATE PAIN (4-6 PAIN SCALE) 09/25/24 10:00 Cancel Butorphanol Tartrate (Stadol Injection) 2 mg Q4HPRN PRN IV SEVERE PAIN (7-10 PAIN SCALE) 09/25/24 10:00 Cancel Benzocaine (Dermoplast) 1 applic PRN PRN TOP PERINEAL AREA DISCOMFORT 09/25/24 10:00 09/25/24 11:33 Diagnostic Test (Pha) (Accu-Chek Comfort Curve T) 1 strip Q4HR PRN Blood Sugar LESS THAN 60 09/25/24 10:00 Lidocaine HCl (Xylocaine) 20 ml ONCE PRN IJ PERINEAL AREA DISCOMFORT 09/25/24 10:00 Sodium Lauryl Sulfate (Phisoderm) 240 ml PRN PRN TOP PERINEAL AREA DISCOMFORT 09/25/24 10:00 09/25/24 11:33 Witch Brenda (Tucks) 1 pad PRN PRN TOP PERINEAL AREA DISCOMFORT 09/25/24 10:00 09/25/24 11:34 Nalbuphine HCl (Nubain) 10 mg Q4HP PRN IV MODERATE PAIN (4-6 PAIN SCALE) 09/25/24 18:30 Oxytocin 1,000 ml @ 6 ml/hr Q24H IV 09/25/24 19:45 09/25/24 21:16 Dextrose/Lactated Ringer's 1,000 ml @ 125 mls/hr Q8H IV 09/25/24 21:00 09/25/24 23:35 DC Famotidine (Pepcid Injection) 40 mg DAILY PRN IV HEARTBURN 09/25/24 22:30 09/25/24 23:19 Dextrose/Lactated Ringer's 1,000 ml @ 125 mls/hr Q8H PRN IV Blood Sugar LESS THAN 80 09/25/24 23:45 Family & Social History Family/Social History Blood Type: O+ Rubella: immune RPR/VDRL: Negative GBS Status: Negative HBsAG: Negative Review of Systems Constitutional: No symptom reported Ears, Nose, & Throat: No symptom reported Eyes: No symptom reported Pulmonary/Respiratory: No symptom reported Cardiovascular: No symptom reported Gastrointestinal: No symptom reported Genitourinary: No symptom reported Musculoskeletal: No symptom reported Skin: No symptom reported Psychiatric: No symptom reported Endocrine: No symptom reported Hemotologic/Lymphatic: No symptom reported OB Admission Exam Physical Exam HEENT: TMs Normal, Fontanelles Normal, Nasal Mucosa Normal, Eyes non-injected, Oropharynx Normal, PERRLA, Moist Membranes, EOMI Heart: Rhythm Normal Lungs: Clear Abdomen: Non tender Extremities: Normal Reflexes: Normal Cervical Dilatation: 3cm Effacement: 50% Membranes: Intact Heart Rate: 130's Accelerations: Accelerations Present Decelerations: No Decelerations Short Term Variability: Present Care Home Variability: Average (6-25) Contractions on Admission: 6-10 Minutes Apart Intensity: Mild OB Plan Plan Admitting Diagnosis: Induction of labor;GDM A2 Plan: Expectant Management ANTHONY RUBALCAVA DO Sep 26, 2024 06:05
[2024-09-26] MEDS: ROPIVACAINE HCL 200 ML ONE ×2 (10:59→17:15)
[2024-09-26] MEDS: ONDANSETRON HCL 4 MG/2 ML VIAL IV PRN (11:43)
[2024-09-26] MEDS: D5W/LACTATED RINGERS 1,000 ML IV PRN (11:52)
[2024-09-26] MEDS ORDERED: ACETAMINOPHEN 325 MG TAB PO PRN (23:15)
[2024-09-27] MEDS: LACT. RINGERS/OXYTOCIN 20UNITS 500 ML IV ONE ×2 (02:08→02:09)
[2024-09-27] MEDS: LIDOCAINE 2%HCL (LOCAL ANESTH.) INJ 20ML MDV ONE (02:11)
[2024-09-27] MEDS: METHYLERGONOVINE MALEATE 0.2 MG/ML AMP IM ONE ×2 (02:42→04:22)
[2024-09-27 03:30] VITALS: BP 137/76; PULSE 82; RESP 18; TEMP 97.9; O2SAT 97
[2024-09-27] MEDS ORDERED: ONDANSETRON ODT 4 MG TAB PO PRN (03:45)
[2024-09-27] MEDS: IBUPROFEN 600 MG TAB PO PRN (04:14)
--- NOTE | 2024-09-27 05:41 | LDN2 ---
Labor and Delivery Note Date 09/27/24 Age 29 2 Para 1 AB 0 EDC 39 wks EGA 39 wks Diagnosis induction Vaginal Delivery: VTX Vacuum Assisted: No Placenta: Spontaneous Sex: Female Weight 6lbs 15 oz Apgars 8/9 Nuchal Cord Transected: Yes Amniotic Fluid: Clear Anesthesia Epidural Episiotomy: No Extension: Yes (2nd degree midline posterior) Repaired with 2-0 chromic EBL 300cc Labs Laboratory Tests 09/16/23 15:49: Hepatitis B Surface Antigen Negative, HIV (1&2) Antibody Negative Blood Bank 09/25/24 08:49: Blood Type O POSITIVE Complications non co morbidity GDM Conditions stable Valve Liner Rubber non present ANTHONY RUBALCAVA DO Sep 27, 2024 05:41
[2024-09-27 07:30] VITALS: BP 119/75; PULSE 86; RESP 16; TEMP 99.1; O2SAT 96
[2024-09-27] MEDS: ACETAMINOPHEN 325 MG TAB PO PRN (08:05)
[2024-09-27 15:30] VITALS: BP 101/53; PULSE 88; RESP 18; TEMP 97.7; O2SAT 97
[2024-09-27 19:00] VITALS: BP 108/57; PULSE 86; RESP 18; TEMP 97.7; O2SAT 97
[2024-09-27 21:00] VITALS: BP 100/65
[2024-09-27] MEDS: DOCUSATE SOD 100 MG CAP PO SCH (22:14)
[2024-09-27 23:25] VITALS: BP 112/66; PULSE 78; RESP 18; TEMP 97.7; O2SAT 97
[2024-09-28 03:30] VITALS: BP 100/59; PULSE 68; RESP 18; TEMP 97.7; O2SAT 97
[2024-09-28 06:44] VITALS: BP 112/70; PULSE 72; RESP 18; TEMP 98.1; O2SAT 98
[2024-09-28] MEDS ORDERED: TETANUS-DIPTH-ACEL PERTUSSIS 0.5ML SYR Tdap IM ONE (07:45)
[2024-09-28 10:38] VITALS: BP 115/60; PULSE 72; RESP 18; TEMP 97.9; O2SAT 98
--- NOTE | 2024-09-28 13:30 | DVHPN2 ---
Chief Complaints Patient reports: No new complaints Nursing reports: No new complaints Objective Vitals Vital Signs Date Time Temp Pulse Resp B/P (MAP) Pulse Ox O2 Delivery O2 Flow Rate FiO2 09/28/24 06:47 Room Air 09/28/24 06:44 98.1 72 18 112/70 (84) 98 98.1 Medications Current Medications Medications (Trade) Dose Ordered Sig/Nannette Route PRN Reason Start Time Stop Time Status Last Admin Docusate Sodium (Colace Capsule) 200 mg HS PO 09/27/24 22:00 09/27/24 22:14 General: Normal Lungs: Normal Cardiovascular: Normal Abdominal: Soft Extremities: Normal Studies Laboratory Tests 09/25/24 08:49 Test 09/25/24 08:49 Range/Units Serum Glucose 106 74-106 mg/dL Ass/Plan Assessment s/p Plan dc home fu in 2wks Visit Coding OBGYN Date of Service: Sep 28, 2024 Billing Provider: SHIRA MCDONALD DO MIXING PICKER TENDER Common Visit Codes: [id number] INP/OBS CARE (HIGH), 42917-RKX/OBS DISCH DAY >30MIN SHIRA MCDONALD DO Sep 28, 2024 13:30
--- NOTE | 2024-09-28 13:35 | DVHDS2 ---
Obstetrics Discharge Summary Obstetrics Discharge Summary Date of Admission: Sep 25, 2024 Date of Discharge: Sep 28, 2024 Reason For Admission: Induction of Labor Procedures: NST Intrapartum Procedures: Spontaneous vaginal deliv Operative Complicat: Laceration (Perineal) Discharge Diagnosis: Term -Delivered Discharge Information: Activity (Other), Diet (Routine), Medications (None), Instructions (Routine), Discharge to (Home), Discarge date (-) Visit Coding OBGYN Date of Service: Sep 28, 2024 Billing Provider: SHIRA MCDONALD DO HEALTH CARE MARKETING SPECIALIST Common Visit Codes: 77660-AMP/OBS DISCH DAY >30MIN SHIRA MCDONALD DO Sep 28, 2024 13:35
== END 2024-09-28 13:08 | disposition home or self-care (01) | DRG 560 ==
LOC: LDRP 08:05
PROVIDERS: ADMIT Obstetrics & Gynecology; ATTEND Obstetrics & Gynecology
PROC: 10E0XZZ Delivery of Products of Conception, External Approach (ICD-10-PCS; principal; 2024-09-27)
PROC: 0KQM0ZZ Repair Perineum Muscle, Open Approach (ICD-10-PCS; 2024-09-27)
PROC: 3E0R3BZ Introduction of Anesthetic Agent into Spinal Canal, Percutaneous Approach (ICD-10-PCS; 2024-09-27)
PROC: 00HU33Z Insertion of Infusion Device into Spinal Canal, Percutaneous Approach (ICD-10-PCS; 2024-09-27)
DX: O69.81X0 Labor and delivery complicated by cord around neck, without compression, not applicable or unspecified (principal); Z37.0 Single live birth; O24.425 Gestational diabetes mellitus in childbirth, controlled by oral hypoglycemic drugs; O70.1 Second degree perineal laceration during delivery; Z3A.39 39 weeks gestation of pregnancy
CPT/HCPCS: 36415; 59025; 59409; 76819; 80053; 80307; 81001; 81002; 82948; 82962; 85025; 85610; 85730; 86780; 86803; 86850; 86900; 86901; 90715; 94760; 94762; 96360; 96361; 96365; 96366; 96372; 96374; G0378; J2405; J2540; J2590; J3490; J7060